=== PATIENT | female | born 1980 | race American Indian/Alaskan Native ===

== ENCOUNTER 2021-05-11 05:46 | Outpatient (CLI) | payer BC ==
[2021-05-11] MEDS ORDERED: LACTATED RINGERS 1,000 ML IV ONE (08:00)
[2021-05-11 08:01] LABS: Basophils % (Auto) 0.4 % (0.0-1.8); Eosinophils # (Auto) 0.1 K/mm3 (0.0-0.4); Eosinophils % (Auto) 1.9 % (0.0-4.3); Hematocrit 34.8 % (30.3-42.9); Lymphocytes # (Auto) 1.8 K/mm3 (1.2-5.4); Lymphocytes % (Auto) 28.8 % (13.4-35.0); Mean Corpuscular HGB Conc 35 % (30-34); Mean Corpuscular Volume 86 fl (79-97); Monocytes # (Auto) 0.5 K/mm3 (0.0-0.8); Monocytes % (Auto) 7.7 % (0.0-7.3); Platelet Count 211 K/mm3 (140-440); Red Blood Count 4.03 M/mm3 (3.65-5.03); Red Cell Distribution Width 14.4 % (13.2-15.2)
--- NOTE | 2021-05-11 08:14 | Anesthesia Consultation ---
Anesthesia Consult and Med Hx Date of service: 05/11/21 - Airway Anesthetic Teeth Evaluation: Good ROM Head & Neck: Adequate Mental/Hyoid Distance: Adequate Mallampati Class: Class II Intubation Access Assessment: Probably Good - Pulmonary Exam CTA: Yes - Cardiac Exam Cardiac Exam: RRR - Pre-Operative Health Status ASA Pre-Surgery Classification: ASA3 Proposed Anesthetic Plan: MAC - Pulmonary Hx Asthma: No COPD: No Hx Pneumonia: No - Cardiovascular System Hx Hypertension: Yes (on meds) - Endocrine Hx End Stage Renal Disease: No - Hematic Hx Sickle Cell Disease: Yes (Trait) - Other Systems Hx Alcohol Use: (not since ) Hx Obesity: Yes
--- NOTE | 2021-05-11 08:14 | Anesthesia Day of Surgery ---
Anesthesia Day of Surgery - Day of Surgery Patient Examined: Yes Patient H&P Reviewed: Yes Patient is NPO: Yes
[2021-05-11] MEDS ORDERED: propofoL 200 MG/20 ML VIAL IV ONE ×5 (08:53→09:48)
[2021-05-11] MEDS ORDERED: KETAMINE/STERILE WATER 50 MG/ML SYRINGE ONE (08:53)
[2021-05-11] MEDS ORDERED: LIDOCAINE MPF (2%) 20 MG/1 ML VIAL 5 ML ONE (10:00)
[2021-05-11] MEDS ORDERED: KETOROLAC 30 MG/1 ML INJ IV PRN (10:03)
[2021-05-11] MEDS ORDERED: ONDANSETRON 4 MG/2 ML INJ IV PRN (10:03)
--- NOTE | 2021-05-11 10:05 | Post Anesthesia Evaluation ---
- Post Anesthesia Evaluation Patient Participated: Yes Airway Patent: Yes Stable Respiratory Function: Yes Nausea/Vomiting: No Temp > 96.8F: Yes Pain Manageable: Yes Adequeate Hydration: Yes Anesthesia Complications: No Block Receding Appropriately: Not Applicable
[2021-05-11] MEDS ORDERED: PHENYLEPHRINE/NS 1,000 MCG/10 ML SYRINGE (OR USE) IV ONE (10:12)
[2021-05-11 10:25] VITALS: BP 130/84
[2021-05-11] MEDS ORDERED: LACTATED RINGERS 1,000 ML ONE (11:04)
--- NOTE | 2021-05-11 16:18 | Operative Report ---
Operative Report Operative Report: PRE-OPERATIVE DIAGNOSIS: 1. Single intrauterine at 15 weeks gestation 2. History of delivery 3. Morbid obesity POST-OPERATIVE DIAGNOSIS: Same PROCEDURE: History-indicated [place] cerclage ATTENDING: Mesfin Luque MD ANESTHESIA: Spinal COMPLICATIONS: None. ESTIMATED BLOOD LOSS: 5 cc FINDINGS: Normal appearing cervix without lesions. 1 stitch placed and secured at 12 oclock position INDICATIONS: XX. All risks, benefits and alternatives were discussed and informed consent was obtained. PROCEDURE: The patient was taken to the operating room and a spinal anesthetic was administered without difficulty. The patient was placed in the dorsal lithotomy position, legs were positioned in Napoleon stirrups. Analgesia was deemed to be adequate. The patient was prepped and draped in the usual sterile fashion and put in Trendelenburg. The patient's bladder was intentionally not catheterized to better delineate the cervico-vesical border. A weighted sterile retractor was placed in the vagina followed by an anterior retractor to better visualize the cervix. A right angle retractor was placed in the lateral side wall of the vagina. Ring forceps were placed on the anterior and posterior lips of the cervix for traction and to create a plain to place the stitch without rupturing membrane. A 5 ethibond suture was use to place a stitch circumferentially around the cervix from 12 o'clock to 9 o'clock, 9 o'clock to 6 o'clock, 6 o'clock to 3 o'clock and from 3 o'clock to 12 o'clock at the level of the cervico-vaginal junction. The stitch was then tied with multiple knots to secure it. All instruments were removed from the vagina. Excellent hemostasis was noted. The bladder was then drained at the end of the procedure with a sterile catheter. The patient was taken to the recovery room in stable condition. Sponge, lap, needle counts were correct times two.
--- NOTE | 2021-05-11 16:25 | History and Physical Report ---
History of Present Illness Date of examination: 05/11/21 Date of admission: 05/11/2021 Chief complaint: Cervical incompetence History of present illness: Ms. Rock is a 40 y/o in a complicated by cervical insufficiency, advanced maternal age, and chronic hypertension. Patient demonstrated a shortened cervix in her 1st underwent cerclage p lacement with a subsequent 32 week delivery. Her subsequent delivered at term with cerclage in place. She has no complaints at this time. She denies any VB or abdominal cramping. Past History Past Medical History: hypertension Past Surgical History: other (cerclage x 2, eye surgery) Family/Genetic History: hypertension Social history: no significant social history - Obstetrical History : 3 Medications and Allergies Allergies Allergy/AdvReac Type Severity Reaction Status Date / Time No Known Allergies Allergy Unverified 05/11/21 06:47 Review of Systems All systems: negative - Vital Signs Vital signs: Vital Signs Temp Pulse Resp BP Pulse Ox 98.7 F 92 H 16 121/75 98 05/11/21 06:23 05/11/21 06:23 05/11/21 06:23 05/11/21 06:23 05/11/21 06:23 Temp Pulse Resp BP Pulse Ox 98.5 F 94 H 16 130/84 99 05/11/21 10:01 05/11/21 11:03 05/11/21 10:01 05/11/21 10:44 05/11/21 11:03 - Physical Exam Cardiovascular: Regular rate Lungs: Positive: Clear to auscultation Abdomen: Positive: normal appearance, soft Cervix: Negative: lesion Extremities: Positive: normal Deep Tendon Reflex Grade: Normal +2 Results Result Diagrams: 05/11/21 07:08 Abnormal lab results 05/11/21 Range/Units 07:08 MCHC 35 H (30-34) % [place] % (Auto) 7.7 H (0.0-7.3) % All other labs normal. Assessment and Plan To OR for cerclage placement - Patient Problems (1) Cervical incompetence Status: Acute
== END 2021-05-11 11:45 | disposition home or self-care (01) ==
LOC: TRG 05:46 → APU 05:55 → TRG 11:45
PROVIDERS: ATTEND Obstetrics & Gynecology Maternal & Fetal Medicine
DX: O34.32 Maternal care for cervical incompetence, second trimester (principal); Z3A.14 14 weeks gestation of pregnancy
CPT/HCPCS: 36415; 59025; 85025; 86850; 86900; 86901; 96360; 96361; J2370; J2704; J3490; J7120